=== PATIENT | male | born 1980 | race Caucasian/White ===

== ENCOUNTER 2019-07-04 11:10 | Emergency (ER) | payer BC, SELFPAY ==
[2019-07-04 11:32] VITALS: BP 143/91; PULSE 105; RESP 18; TEMP 36.6; O2SAT 99
[2019-07-04] MEDS: TETANUS,DIPHTHERIA,AC PERTUSSIS ADULT 0.5 ML (ADACEL) IM (12:13)
--- NOTE | 2019-07-04 12:17 | ED.ANIMALBIT ---
HPI - Animal Bite General Chief Complaint: Animal Bite Stated Complaint: Cat bite Time Seen by Provider: 07/04/19 12:07 Source: patient and RN notes reviewed Mode of arrival: ambulatory Limitations: no limitations History of Present Illness HPI narrative: 38-year-old male presents with concern for cat bite and scratch that he sustained approximately 1040 this morning. Reports his own cat who is properly vaccinated scratched and bit him. Reports puncture wounds and scratches to right hand and right knee. MD complaint: animal bite Related Data Home Medications Medication Instructions Recorded Confirmed finasteride 1 mg PO DAILY 07/04/19 07/04/19 Allergies Allergy/AdvReac Type Severity Reaction Status Date / Time No Known Drug Allergies Allergy Unknown Verified 07/04/19 11:48 Review of Systems Review of Systems: Narrative: CONSTITUTIONAL: Denies malaise, chills, sweats, or fever. CARDIOVASCULAR: Denies chest pain, palpitations, or edema. RESPIRATORY: Denies dyspnea. SKIN: Reports puncture wounds, scratch to right hand, right knee MUSCULOSKELETAL: Denies decreased range of motion, joint pain, myalgia. NEUROLOGIC: Denies numbness, weakness All systems reviewed & are unremarkable except as noted in HPI and below PMFSH Comments At time of signature, agree with nursing past medical, surgical, social and family history. There is no relevant family history pertinent to the presenting complaint Exam Narrative: Exam Narrative: GENERAL: Well-appearing, well-nourished, and in no acute distress. HEAD: Normocephalic, atraumatic. EYES: PERRLA, conjunctivae clear NECK: Supple. CHEST: Speaks in full sentences. No respiratory distress. HEART: Regular rate and rhythm. Normal and equal peripheral pulses. EXTREMITIES: Right hand and digits of hand have normal strength and sensation. 5/5 strength with digit flexion, extension. Range of motion normal. No clubbing, cyanosis, or edema noted. No tenderness. Normal digital cascade with flexion of fingers, median, ulnar and radial nerve intact. Normal sensation of each side of finger. Can perform 'okay' sign, 'cross over finger test of index and middle fingers' and 'thumbs up' sign. No scissoring. Normal thumb opposition. Good capillary refill and radial pulse. Distal capillary refill <3 seconds. NEURO: Alert and oriented x3. Puncture wounds noted to right hand between digits 1 and 2, dorsal aspect. Superficial abrasion noted to right knee. Superficial abrasion noted to dorsal aspect of left hand PSYCH: Normal mood and affect Course Course Emergency Course: Patient is aware of diagnosis, understands and agrees to treatment plan. Anticipatory guidance given. Patient agrees to follow-up as directed and is aware of reasons to seek care at the emergency department. Portions of this record may have been created with voice recognition software Vital Signs Vital signs: Vital Signs Temperature 98 F 07/04/19 11:32 Pulse Rate 105 H 07/04/19 11:32 Respiratory Rate 18 07/04/19 11:32 Blood Pressure 143/91 H 07/04/19 11:32 Pulse Oximetry 99 07/04/19 11:32 Temperature 98 F 07/04/19 11:32 Pulse Rate 105 H 07/04/19 11:32 Respiratory Rate 18 07/04/19 11:32 Blood Pressure 143/91 H 07/04/19 11:32 Pulse Oximetry 99 07/04/19 11:32 Reviewed. Pt has been instructed to follow up with his primary care provider within the next week regarding his elevated blood pressure today. MDM - Animal Bite MDM Narrative Medical decision making narrative: Exam findings show no acute concerns or changes; patient is non-toxic appearing and is in no distress. Patient is appropriate for outpatient treatment and follow-up. Differential Diagnosis Differential diagnosis: Likely bite by animal, cat bite and rabies contact Critical Care Time Critical Care Time Critical Care Time: No Discharge Plan Discharge Clinical Impression: Cat scratch Cat bite Qualifiers: Encounter type: initial
== END 2019-07-04 12:33 | disposition home or self-care (01) ==
PROVIDERS: Emergency Provider Nurse Practitioner
DX: S61.451A Open bite of right hand, initial encounter (principal); S60.512A Abrasion of left hand, initial encounter; S80.211A Abrasion, right knee, initial encounter; Z23 Encounter for immunization; W55.01XA Bitten by cat, initial encounter; W55.03XA Scratched by cat, initial encounter
CPT/HCPCS: 90471; 90715; 99203; G0463